=== PATIENT | female | born 1960 | race African-American/Black ===

== ENCOUNTER 2018-02-27 17:51 | Emergency (ER) | payer OTHER ==
[~2018-02-27] VITALS: Ht 165.1 cm; Wt 63.5 kg
--- NOTE | ~2018-02-27 | EKG ---
[place] [address] [facility] [place] [address] ELECTROCARDIOGRAM REPORT Name: TACO RIVERS Room [facility]: [facility] [id number] Admission: 02/27/18 Attend Phys: Discharge: 02/27/18 Date of : 62 Report #: [id number] THIS REPORT FOR: //name// [facility] ED Test Date: 2018-02-27 Test Time: 17:56:47 Pat Name: TACO BOTELLO Department: Room: Gender: F Alcohol And Drug Counselor: [facility] : 1960 Requested By: Jocy Allison Order Number: [id number] MD: Marco Farrell Measurements Intervals [place] Rate: 76 P: 72 MT: 175 QRS: 54 QRSD: 79 T: 51 QT: 344 QTc: 387 Interpretive Statements Sinus rhythm No significant abnormality Baseline wander in lead(s) I,aVR Compared to ECG 11/11/2015 08:46:22 No significant change was found Electronically Signed On 02-28-2018 7:34:59 CDT by Marco Farrell [email or web address] <ELECTRONICALLY SIGNED> By: Marco Farrell MD, [facility] 02/28/18 0734 [id number] 55 Marco Farrell MD, [facility] /EPI
[~2018-02-27 17:51] MED LIST: ASPIR 8181 MG PO; ASPIRIN325 PO; NOHOMEMEDICATIONS; PRILOSEC 20 MG20 MG PO; TOPAMAX 25 MG T25 M1 PO; VITAMIN B-12500 MCG PO
[2018-02-27] MEDS ORDERED: CLARITIN10 MG PO (18:23)
[2018-02-27] MEDS ORDERED: SUDAFED 24-HOU240 MG PO (18:23)
[2018-02-27 18:35] LABS: HEMATOCRIT 38.4 % (37.0-47.0); HEMOGLOBIN 12.9 gm/dL (12.0-15.0); MCH 32.6 pg (26.0-34.0); MCHC 33.7 g/dL (28.0-37.0); MCV 96.8 fL (80.0-100.0); PLATELET COUNT 183 thou/uL (150-400); RBC 3.97 mil/uL (4.20-5.00); RDW 12.6 % (10.5-14.5); WBC 2.8 thou/uL (4.0-11.0)
[2018-02-27 18:46] LABS: CALCIUM 8.3 mg/dL (8.5-10.1); CREATININE 0.9 mg/dL (0.6-1.0)
[2018-02-27 18:46] LABS: URINE BILIRUBIN NEGATIVE (Negative); URINE BLOOD TRACE (Negative); URINE CLARITY CLEAR; URINE COLOR YELLOW; URINE GLUCOSE-RANDOM* NEGATIVE (Negative); URINE KETONES NEGATIVE (Negative); URINE LEUKOCYTES NEGATIVE (Negative); URINE NITRITE NEGATIVE (Negative); URINE PROTEIN (DIPSTICK) 1+ (Negative); URINE SPECIFIC GRAVITY 1.015 (1.005-1.035); URINE UROBILINOGEN 0.2 E.U./dl (0.2-1.0)
[2018-02-27 18:53] LABS: ALBUMIN 3.1 g/dL (3.4-5.0); TOTAL BILIRUBIN 0.2 mg/dL (<0.1-1.0); TOTAL PROTEIN 6.7 g/dL (6.4-8.2)
[2018-02-27 18:56] LABS: CASTS None Seen /LPF (None Seen); CRYSTALS None Seen /LPF (None Seen); SQUAMOUS 0-3 Few /LPF (0-3); URINE WBC 0-5 Rare /HPF (0-5)
[2018-02-27 18:57] LABS: BACTERIA None Seen /HPF (None Seen); URINE RBC 3-10 Few /HPF (0-2)
[2018-02-27 19:01] LABS: ABSOLUTE NEUTROPHILS 1.5 thou/uL (1.4-8.2)
[2018-02-27] MEDS ORDERED: AZITHROMYCIN 2250 MG PO (19:49)
== END 2018-02-27 20:17 | disposition home or self-care (01) ==
LOC: ER 17:51
PROVIDERS: Physician Assistant
DX: J18.9 Pneumonia, unspecified organism (principal); B34.9 Viral infection, unspecified; R50.9 Fever, unspecified; M79.1 Myalgia; R42 Dizziness and giddiness; K21.9 Gastro-esophageal reflux disease without esophagitis; Z90.49 Acquired absence of other specified parts of digestive tract; Z91.02 Food additives allergy status